=== PATIENT | female | born 1995 | race Caucasian/White ===

== ENCOUNTER 2025-01-21 23:12 | Emergency (ER) | payer SELFPAY ==
[~2025-01-21] VITALS: Ht 160 cm; Wt 63.0 kg
[2025-01-22 00:10] VITALS: O2SAT 99
[2025-01-22] MEDS: ACETAMINOPHEN 500MG TABLET PO ONE (00:48)
[2025-01-22] MEDS ORDERED: NAPR-1176 MT (01:59)
[2025-01-22] MEDS ORDERED: LIDO-53 TP (01:59)
[2025-01-22 03:15] VITALS: BP 126/82; PULSE 70; RESP 16; TEMP 37; O2SAT 96
== END 2025-01-22 03:22 | disposition home or self-care (01) ==
LOC: ER 23:12
DX: S52.122A Displaced fracture of head of left radius, initial encounter for closed fracture (principal); Z79.1 Long term (current) use of non-steroidal anti-inflammatories (NSAID); Z88.0 Allergy status to penicillin; V00.141A Fall from scooter (nonmotorized), initial encounter; Y93.89 Activity, other specified; Y92.89 Other specified places as the place of occurrence of the external cause; Y99.8 Other external cause status
CPT/HCPCS: 73080; 99283